=== PATIENT | female | born 1975 | race American Indian/Alaskan Native ===

== ENCOUNTER 2017-08-06 18:15 | Emergency (ER) | payer SELFPAY ==
[2017-08-06 18:23] VITALS: BP 131/88; PULSE 84; RESP 16; TEMP 98.9; O2SAT 99
[2017-08-06] MEDS ORDERED: Naproxen 550 mg Tab PO STA (19:03)
[2017-08-06] MEDS ORDERED: TDAP Vaccine 0.5 mL Syr IM ONE (19:16)
--- NOTE | 2017-08-06 19:18 | ED PDOC ---
Arrival/HPI - General Chief Complaint: Breast Problem Time Seen by Provider: 08/06/17 18:31 Historian: Patient - History of Present Illness Narrative History of Present Illness (Text): 08/06/17 19:23 42 yo F c/o 2 day h/p painful red mass to the R breast proximal to the nipple, with thick yellow d/c from the nipple. Patient states that she has had similar symptoms 2 months ago, she saw her pmd and was not given any Rx for antibiotics. She states that she was advised by her pmd to get a mammogram, which she had done and was wnl. Denies fever, chills, trauma, injury, CP, SOB. Has no additional complaints. Past Medical History - Provider Review Nursing Documentation Reviewed: Yes - Psychiatric Hx Substance Use: No Family/Social History - Physician Review Nursing Documentation Reviewed: Yes Family/Social History: No Known Family HX Smoking Status: Never Smoked Hx Alcohol Use: No Hx Substance Use: No Allergies/Home Meds Allergies/Adverse Reactions: Allergies No Known Allergies Allergy (Verified 08/06/17 18:23) Review of Systems - Review of Systems Constitutional: Normal. absent: Fatigue, Weight Change, Fevers Respiratory: Normal. absent: SOB, Cough, Sputum Cardiovascular: Normal. absent: Chest Pain, Palpitations, Edema Musculoskeletal: Normal. absent: Arthralgias, Back Pain, Neck Pain Skin: Normal, Abscess (R breast abscess). absent: Rash, Pruritis, Skin Lesions Physical Exam Vital Signs Reviewed: Yes Vital Signs Temp Pulse Resp BP Pulse Ox 08/06/17 18:20 98.9 F 84 16 131/88 99 Temperature: Afebrile Blood Pressure: Normal Pulse: Regular Respiratory Rate: Normal Appearance: Positive for: Well-Appearing, Non-Toxic, Comfortable Pain Distress: Mild Mental Status: Positive for: Alert and Oriented X 3 - Systems Exam Head: Present: Atraumatic, Normocephalic Neck: Present: Normal Range of Motion. No: MIDLINE TENDERNESS Respiratory/Chest: Present: Clear to Auscultation, Good Air Exchange. No: Respiratory Distress, Accessory Muscle Use, Wheezes, Rhonchi Cardiovascular: Present: Regular Rate and Rhythm, Normal S1, S2. 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 No: Axillary Lymphad Upper Extremity: Present: Normal Inspection, Normal ROM, NORMAL PULSES. No: Cyanosis, Edema Neurological: Present: GCS=15, CN II-XII Intact Skin: Present: Warm, Dry, Normal Color. No: Rashes Medical Decision Making ED Course and Treatment: 08/06/17 19:25 42 yo F c/o 2 day h/p painful red mass to the R breast proximal to the nipple, with thick yellow d/c from the nipple. Plan : - Tdap IM - Naprosyn PO Dx of breast abscess d/w the patient. Advised to apply warm compresses. Otherwise instructed to follow up with primary care physician or referral physician provided in 1-2 days without fail. Advised to take medication as prescribed. Return to the emergency room at any time for any new or worsening symptoms. Patient states she fully agrees with and understands discharge instructions. States that she agrees with the plan and disposition. Verbalized and repeated discharge instructions and plan. I have given the patient opportunity to ask any additional questions. - Medication Orders Current Medication Orders: Discontinued Medications Naproxen (Anaprox Ds) 550 mg PO ONCE STA Stop: 08/06/17 19:04 Last Admin: 08/06/17 19:58 Dose: 550 mg Tetanus/Reduced Diphtheria/Acell Pertussis (Boostrix Vaccine Inj) 0.5 ml IM .ONCE ONE Stop: 08/06/17 19:17 Last Admin: 08/06/17 19:57 Dose: 0.5 ml [facility] Immunization Data Document 08/06/17 19:57 RD (Rec: 08/06/17 19:58 RD [id number]) Immunization Data Vaccine [employer] Vaccine Lot Number [id number] Vaccine Expiration Date 09/03/19 Site Given Left Deltoid Route Intramuscular Immunization Units ml - 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 Disposition/Present on Arrival - Present on Arrival Any Indicators Present on Arrival: No History of DVT/PE: No History of Uncontrolled Diabetes: No Urinary Catheter: No History of Decub. Ulcer: No History Surgical Site Infection Following: None - Disposition Have Diagnosis and Disposition been Completed?: Yes Diagnosis: Breast abscess Disposition: HOME/ ROUTINE Disposition Time: 19:00 Patient Plan: Discharge Condition: STABLE Discharge Instructions (ExitCare): Mastitis (ED) Print Language: BELARUSIAN Additional Instructions: Thank you for letting us take care of you today. You were treated for breast abscess. The emergency medical care you received today was directed at your acute symptoms. If you were prescribed any medication, please fill it and take as directed. It may take several days for your symptoms to resolve. Return to the Emergency Department if your symptoms worsen, do not improve, or if you have any other problems. Please contact your doctor in 2 days for re-evaluation and follow up / or call one of the physicians/clinics you have been referred to that are listed on the Patient Visit Information form that is included in your discharge packet. Bring any paperwork you were given at discharge with you along with any medications you are taking to your follow up visit. Our treatment cannot replace ongoing medical care by a primary care provider (PCP) outside of the emergency department. Thank you for allowing the [facility] team to be part of your care today. Prescriptions: Dicloxacillin [Dynapen] 500 mg PO QID #40 cap Referrals: Kelly Tejada DO [Primary Care Provider] - Follow up with primary Manuelito Lyons MD [Medical Doctor] - Follow up with primary Forms: [employer] (Samoan), WORK NOTE
== END 2017-08-06 19:58 | disposition home or self-care (01) ==
LOC: ED 18:15
DX: N61.1 Abscess of the breast and nipple (principal); Z23 Encounter for immunization

== ENCOUNTER 2017-11-02 09:51 | Inpatient (IN) | payer OTHER ==
[2017-11-02 10:05] VITALS: BMI 43.5
--- NOTE | 2017-11-02 10:39 | ED PDOC ---
Arrival/HPI - General Chief Complaint: Shortness Of Breath Time Seen by Provider: 11/02/17 10:05 Historian: Patient - History of Present Illness Narrative History of Present Illness (Text): 11/02/17 10:36 you were treated in the ED today for cough/cold like symptoms for 2 days and intermittent chest pain with difficulty breathing on ambulation otherwise without any nausea/vomiting/headache/dizziness/abdomen pain/numbness/tingling/ loss of limb function/pain with urination. Time/Duration: Other (2 days) Symptom Course: Unchanged Context: Home Past Medical History - Provider Review Nursing Documentation Reviewed: Yes - Psychiatric Hx Substance Use: No Family/Social History - Physician Review Nursing Documentation Reviewed: Yes Family/Social History: No Known Family HX Smoking Status: Never Smoked Hx Alcohol Use: No Hx Substance Use: No Allergies/Home Meds Allergies/Adverse Reactions: Allergies No Known Allergies Allergy (Verified 11/02/17 10:16) Home Medications: Home Meds Medication Instructions Recorded Confirmed No Known Home Med 11/02/17 11/02/17 Review of Systems - Physician Review All systems were reviewed & negative as marked: Yes - Review of Systems Respiratory: SOB (on ambualtion), Cough Cardiovascular: Chest Pain Gastrointestinal: absent: Abdominal Pain, Nausea, Vomiting Genitourinary Female: absent: Dysuria Neurological: absent: Headache, Dizziness, Focal Weakness Physical Exam Vital Signs Reviewed: Yes Vital Signs Temp Pulse Resp BP Pulse Ox 11/02/17 14:47 74 20 83/46 L 100 11/02/17 11:14 98.1 F 81 18 114/64 100 11/02/17 11:07 18 11/02/17 10:04 98.1 F 96 H 18 119/76 100 Temperature: Afebrile Blood Pressure: Normal Pulse: Tachycardic Respiratory Rate: Normal Appearance: Positive for: Well-Appearing, Non-Toxic, Comfortable Pain Distress: None Mental Status: Positive for: Alert and Oriented X 3 - Systems Exam Head: Present: Atraumatic, Normocephalic Pupils: Present: PERRL Extroacular Muscles: Present: EOMI Conjunctiva: Present: Normal Mouth: Present: Moist Mucous Membranes Neck: Present: Normal Range of Motion Respiratory/Chest: Present: Clear to Auscultation, Good Air Exchange. No: Respiratory Distress, Accessory Muscle Use Cardiovascular: Present: Regular Rate and Rhythm, Normal S1, S2. No: Murmurs Abdomen: Present: Normal Bowel Sounds. No: Tenderness, Distention, Peritoneal Signs Back: Present: Normal Inspection Upper Extremity: Present: Normal Inspection. No: Cyanosis, Edema Lower Extremity: Present: Normal Inspection. No: Edema Neurological: Present: GCS=15, CN II-XII Intact, Speech Normal Skin: Present: Warm, Dry, Normal Color. No: Rashes Psychiatric: Present: Alert, Oriented x 3, Normal Insight, Normal Concentration Medical Decision Making ED Course and Treatment: you were treated in the ED today for cough/cold like symptoms for 2 days and intermittent chest pain with difficulty breathing on ambulation otherwise without any nausea/vomiting/headache/dizziness/abdomen pain/numbness/tingling/ loss of limb function/pain with urination. PERC negative ie no recent travel, no prior blood clots. no control or hormone use. You were otherwise breathing easily, smiling when you talk, good strength/sensation, walking easily , clear lungs, no abdomen tenderness, your vision was such no fever temp 98.1, you have blood tests no infection count with low WBC of 3.2, stable blood level hemoglobin 13.5/platelets 245, stable chemistry sodium normal, potassium normal , bicarbonate normal, chloride normal, bun normal, creatinine normal, glucose normal, heart blood test normal, bnp/heart failure test 2180, urine test negative, radiology chest xray with no acute findings, ECG normal sinus, observation in the ed. Report Date : 11/02/2017 13:07:41 Procedure: Chest xray Dictator : DR. Mata, Janie CHAHAL IMPRESSION: No active pulmonary disease. 11/02/17 16:59 cta chest no pe. mild bp drop 83, will give 250cc ns and to wash iv contrast, trop 0.11 indeterminate, bnp 2180, dw Dr. Catalan who agreed, utox, influenza and admit for new onset chf to telemetry when bp increase. 11/02/17 17:00 - Lab Interpretations Lab Results: 11/02/17 12:07 11/02/17 12:07 Lab Results 11/02/17 12:15: D-Dimer, Quantitative 348 H 11/02/17 12:07: Sodium 140, Potassium 3.6, Chloride 104, Carbon Dioxide 23, Anion Gap 16, BUN 16, Creatinine 1.1, Est GFR ( Amer) > 60, Est GFR (Non- Af Amer) 54, Random Glucose 110, Calcium 9.2, Total Bilirubin 0.7, AST 28, ALT 30, Alkaline Phosphatase 64, Lactate Dehydrogenase 422, Total Creatine Kinase 75 , Troponin I 0.11, NT-Pro-B Natriuret Pep 2180 H, Total Protein 7.2, Albumin 3.8 , Globulin 3.4, Albumin/Globulin Ratio 1.1 11/02/17 12:07: PT 13.4 H, INR 1.16 H, APTT 28.0 11/02/17 12:07: WBC 3.2 L, RBC 4.67, Hgb 13.5, Hct 40.8, MCV 87.4, MCH 28.9, MCHC 33.1, RDW 14.2, Plt Count 245, MPV 10.3, Gran % 55.0, Lymph % (Auto) 36.1 H , [place] % (Auto) 7.0 H, Eos % (Auto) 1.6, Baso % (Auto) 0.3, Gran # 1.74, Lymph # 1.1 L, [place] # 0.2, Eos # 0.1, Baso # 0.01 11/02/17 11:44: Urine Color Light brown, Urine Appearance Sl cloudy, Urine pH 6.5, Ur Specific [place] 1.025, Urine Protein 100 H, Urine Glucose (UA) Negative , Urine Ketones Trace H, Urine Blood Trace-intact H, Urine Nitrate Negative, Urine Bilirubin Moderate H, Urine Urobilinogen 1.0 H, Ur Leukocyte Esterase Trace H, Urine RBC 0 - 2, Urine WBC 2 - 5, Ur Epithelial Cells 3 - 4, Urine Bacteria Few I have reviewed the lab results: Yes - RAD Interpretation Radiology Orders: 11/02/17 11:44 CHEST TWO VIEWS (PA/LAT) [RAD] Stat 11/02/17 14:04 ANGIO CHEST PE PROTOCOL [CT] Stat Patient Ambassador: Radiologist - EKG Interpretation Interpreted by ED Physician: Yes (NSR, flipped avl, iii, v2, v3, v4, v5, v6, flattened iii, avf) Type: 12 lead EKG - Medication Orders Current Medication Orders: Sodium Chloride (Sodium Chloride 0.9%) 250 mls @ 999 mls/hr IV .Q16M NANCY Discontinued Medications Aspirin (Aspirin) 325 mg PO STAT STA Stop: 11/02/17 11:45 Last Admin: 11/02/17 12:00 Dose: 325 mg Disposition/Present on Arrival - Present on Arrival Any Indicators Present on Arrival: Yes History of DVT/PE: No History of Uncontrolled Diabetes: No Urinary Catheter: No History of Decub. Ulcer: No History Surgical Site Infection Following: None - Disposition Have Diagnosis and Disposition been Completed?: Yes Diagnosis: CHF (congestive heart failure) Disposition Time: 17:01 Patient Plan: Admission, Telemetry Condition: STABLE Discharge Instructions (ExitCare): Heart Failure (ED) Referrals: Kelly Tejada DO [Primary Care Provider] - Follow up with primary Forms: [employer] (S[place] Arabian)
[2017-11-02 11:56] LABS: PH,URINE 6.5 (4.7-8.0); URINE BILIRUBIN MODERATE (NEGATIVE); URINE BLOOD TRACE-INTACT (NEGATIVE); URINE GLUCOSE (UA) NEGATIVE (NEGATIVE); URINE LEUKOCYTE ESTERASE TRACE Leu/uL (NEGATIVE); URINE NITRATE NEGATIVE (NEGATIVE); URINE PROTEIN 100 mg/dL (<30 mg/dL)
[2017-11-02 11:58] LABS: URINE APPEARANCE SL CLOUDY (CLEAR); URINE COLOR LIGHT BROWN (YELLOW)
[2017-11-02 12:01] LABS: URINE BACTERIA FEW (NEG); URINE RBC 0 - 2 /hpf (0-2)
[2017-11-02 12:27] LABS: BASO # 0.01 K/mm3 (0.0-2.0); BASO % 0.3 % (0.0-3.0); EOS # 0.1 (0.0-0.7); EOS % 1.6 % (1.5-5.0); GRAN # 1.74 (1.4-6.5); HEMOGLOBIN 13.5 g/dL (12.0-16.0); LYMPH # 1.1 (1.2-3.4); LYMPH % 36.1 % (22.0-35.0); MEAN CELL VOLUME 87.4 fl (80.0-105.0); MEAN CORPUSCULAR HEMOGLOBIN 28.9 pg (25.0-35.0); MEAN CORPUSCULAR HGB CONC 33.1 g/dl (31.0-37.0); MEAN PLATELET VOLUME 10.3 fl (7.0-11.0); MONO # 0.2 (0.1-0.6); RBC 4.67 10^6/uL (3.5-6.1); RED CELL DISTRIBUTION WIDTH 14.2 % (11.5-14.5); WHITE BLOOD COUNT 3.2 10^3/ul (4.5-11.0)
[2017-11-02 12:32] LABS: ALB/GLOB RATIO 1.1 (1.1-1.8); ALBUMIN 3.8 g/dL (3.0-4.8); ALT/SGPT 30 U/L (7-56); AST/SGOT 28 U/L (14-36); BLOOD UREA NITROGEN 16 mg/dL (7-21); CALCIUM 9.2 mg/dL (8.4-10.5); GFR AFRICAN-AMERICAN > 60; GFR NON-AFRICAN AMERICAN 54
[2017-11-02 12:33] LABS: INR 1.16 (0.93-1.08); PROTHROMBIN TIME 13.4 SECONDS (9.4-12.5)
[2017-11-02 12:43] LABS: B-TYPE NATRIURETIC PEPTIDE 2180 pg/mL (0-450); TROPONIN I 0.11 ng/mL
--- NOTE | 2017-11-02 15:28 | CT ---
PROCEDURE: CT Chest with contrast (Pulmonary Angiogram) HISTORY: 42yoF, chest pain, elevated bnp, d-dimer. eval PE COMPARISON: None available. TECHNIQUE: Axial computed tomography images were obtained of the chest in the pulmonary arterial phase of enhancement. Coronal and sagittal reformatted images were created and reviewed. Intravenous contrast dose: 100 cc of Visipaque Radiation dose: Total exam DLP = 630 mGy-cm. This CT exam was performed using one or more of the following dose reduction techniques: Automated exposure control, adjustment of the mA and/or kV according to patient size, and/or use of iterative reconstruction technique. FINDINGS: PULMONARY ARTERIES: Unremarkable. No pulmonary embolism. AORTA: No acute findings. No thoracic aortic aneurysm. LUNGS: Unremarkable. No nodule, mass or pulmonary consolidation. PLEURAL SPACES: Unremarkable. No effusion or pneuomothorax. HEART: Unremarkable. No cardiomegaly. No significant pericardial effusion. LYMPH NODES: No lymphadenopathy. BONES, CHEST WALL: Unremarkable. No fracture or destructive lesion OTHER FINDINGS: Unremarkable. IMPRESSION: Unremarkable CT pulmonary angiogram. No pulmonary embolus.
[2017-11-02] MEDS ORDERED: Sodium Chloride 0.9% 250 ML IV SCH (17:00)
[2017-11-02] MEDS ORDERED: Albuterol 0.083% Inhal Sol (2.5 mg/3 mL) UD IH PRN (17:06)
[2017-11-02] MEDS ORDERED: Sodium Chloride 0.9% 1,000 ML IV SCH (17:15)
--- NOTE | 2017-11-02 17:29 | CP.PCM.HP ---
<KayliNga - Last Filed: 11/02/17 17:40> History of Present Illness - History of Present Illness History of Present Illness: H&P for HospitalistSherry PGY2 This is a 42yo female with past medical history of breast abscess came to ED for shortness of breath x 1 day. Patient report she had a dry cough and URI since last Thursday. She states during that time she had a dry cough and subjective fevers. She used OTC medications for her symptoms which have improved. Patient said that this morning she was having a coughing fit and started feeling short of breath so she decided to come to ED. She denies sick contacts, recent travel, leg swelling, chest pain, wheezing, numbness/tingling, abdominal pain, fever/chills, dysuria or hematuria. In ED, patient was noted to have elevated D-dimer. CTA did not show any acute abnormalities. CXR showed no active disease and EKG showed NSR. BNP was noted to be elevated. As per patient, she has not seen her PMD in a couple years because she has gained weight and was unable to lose it. Past medical history: breast abscess Past surgical history: denies Home meds: None Allergies: NKDA Social history: Denies EtOH, drug or tobacco abuse. Lives with family. 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 Joie Tejada Insurance: None Present on Admission - Present on Admission Any Indicators Present on Admission: No Review of Systems - Review of Systems All systems: reviewed and no additional remarkable complaints except Review of Systems: 12 point ROS reviewed as per HPI Past Patient History - Past Social History Smoking Status: Never Smoked Alcohol: None Drugs: Denies Home Situation {Lives}: With Family - PSYCHIATRIC Hx Substance Use: No - SURGICAL HISTORY Hx Surgeries: No Meds Allergies/Adverse Reactions: Allergies Allergy/AdvReac Type Severity Reaction Status Date / Time No Known Allergies Allergy Verified 11/02/17 10:16 Physical Exam - Constitutional Appears: No Acute Distress - Head Exam Head Exam: ATRAUMATIC, NORMAL INSPECTION, NORMOCEPHALIC - Eye Exam Eye Exam: Normal appearance, PERRL Pupil Exam: NORMAL ACCOMODATION, PERRL - ENT Exam ENT Exam: Mucous Membranes Moist - Neck Exam Neck exam: Positive for: Full Rom, Normal Inspection - Respiratory Exam Respiratory Exam: Clear to Auscultation Bilateral, NORMAL BREATHING PATTERN. absent: Rales, Rhonchi, Wheezes - Cardiovascular Exam Cardiovascular Exam: REGULAR RHYTHM, +S1, +S2. absent: Gallop, Rubs, Systolic Murmur - GI/Abdominal Exam GI & Abdominal Exam: Normal Bowel Sounds, Soft. absent: Mass, Rebound, Rigid, Tenderness - Extremities Exam Extremities exam: Positive for: normal inspection. Negative for: calf tenderness, pedal edema - Neurological Exam Neurological exam: Alert, CN II-XII Intact, Oriented x3 - Psychiatric Exam Psychiatric exam: Normal Affect, Normal Mood - Skin Skin Exam: Dry, Intact, Warm Results - Vital Signs Recent Vital Signs: Last Vital Signs Temp 98.1 F 11/02/17 11:14 Pulse 78 11/02/17 16:59 Resp 18 11/02/17 16:59 BP 90/56 L 11/02/17 16:59 Pulse Ox 100 11/02/17 16:59 - Labs Result Diagrams: 11/02/17 12:07 11/02/17 12:07 Labs: Laboratory Results - last 24 hr 11/02/17 11/02/17 11/02/17 11:44 12:07 12:07 WBC 3.2 L RBC 4.67 Hgb 13.5 Hct 40.8 MCV 87.4 MCH 28.9 MCHC 33.1 RDW 14.2 Plt Count 245 MPV 10.3 Gran % 55.0 Lymph % (Auto) 36.1 H [place] % (Auto) 7.0 H Eos % (Auto) 1.6 Baso % (Auto) 0.3 Gran # 1.74 Lymph # 1.1 L [place] # 0.2 Eos # 0.1 Baso # 0.01 PT 13.4 H INR 1.16 H APTT 28.0 D-Dimer, Quantitative Sodium Potassium Chloride Carbon Dioxide Anion Gap BUN Creatinine Est GFR ( Amer) Est GFR (Non-Af Amer) Random Glucose Calcium Total Bilirubin AST ALT Alkaline Phosphatase Lactate Dehydrogenase Total Creatine Kinase Troponin I NT-Pro-B Natriuret Pep Total Protein Albumin Globulin Albumin/Globulin Ratio Urine Color Light brown Urine Appearance Sl cloudy Urine pH 6.5 Ur Specific [place] 1.025 Urine Protein 100 H Urine Glucose (UA) Negative Urine Ketones Trace H Urine Blood Trace-intact H Urine Nitrate Negative Urine Bilirubin Moderate H Urine Urobilinogen 1.0 H Ur Leukocyte Esterase Trace H Urine RBC 0 - 2 Urine WBC 2 - 5 Ur Epithelial Cells 3 - 4 Urine Bacteria Few 11/02/17 11/02/17 12:07 12:15 WBC RBC Hgb Hct MCV MCH MCHC RDW Plt Count MPV Gran % Lymph % (Auto) [place] % (Auto) Eos % (Auto) Baso % (Auto) Gran # Lymph # [place] # Eos # Baso # PT INR APTT D-Dimer, Quantitative 348 H Sodium 140 Potassium 3.6 Chloride 104 Carbon Dioxide 23 Anion Gap 16 BUN 16 Creatinine 1.1 Est GFR ( Amer) > 60 Est GFR (Non-Af Amer) 54 Random Glucose 110 Calcium 9.2 Total Bilirubin 0.7 AST 28 ALT 30 Alkaline Phosphatase 64 Lactate Dehydrogenase 422 Total Creatine Kinase 75 Troponin I 0.11 NT-Pro-B Natriuret Pep 2180 H Total Protein 7.2 Albumin 3.8 Globulin 3.4 Albumin/Globulin Ratio 1.1 Urine Color Urine Appearance Urine pH Ur Specific [place] Urine Protein Urine Glucose (UA) Urine Ketones Urine Blood Urine Nitrate Urine Bilirubin Urine Urobilinogen Ur Leukocyte Esterase Urine RBC Urine WBC Ur Epithelial Cells Urine Bacteria Assessment & Plan - Assessment and Plan (Free Text) Assessment: This is a 42yo female with past medical history of breast abscess came to ED for shortness of breath x 1 day. Patient recently had URI 6 days ago with dry cough. BNP was noted to be elevated. Plan: 1. Shortness of breath - secondary to URI versus CHF - CXR showed no active disease or cardiomegaly - CTA showed no evidence of PE - EKG showed NSR - BNP elevated, Trop 0.11 - Will continue to trend troponin - if trop trending up will start on lovenox - Will check lipid panel, TSH and HgbA1c - Cardio consulted - Echo ordered - ASA 81mg - Influenza pending - Duoneb prn 2. Mild hypotension - secondary to poor PO intake - Fluid responsive - maintain map>65 - Will keep pt on NS@75 overnight - Monitor I&O and d/c in am GI ppx: Protonix DVT ppx: SCDs Case seen, discussed and reviewed with attending. Sherry Milan PGY2 - Date & Time Date: 11/02/17 Time: 18:01 <Cassandra Catalan - Last Filed: 11/02/17 18:44> Results - Vital Signs Recent Vital Signs: Last Vital Signs Temp 98.1 F 11/02/17 11:14 Pulse 78 11/02/17 16:59 Resp 18 11/02/17 16:59 BP 90/56 L 11/02/17 16:59 Pulse Ox 100 11/02/17 16:59 - Labs Result Diagrams: 11/02/17 12:07 11/02/17 12:07 Labs: Laboratory Results - last 24 hr 11/02/17 17:35 Troponin I 0.12 Triglycerides 91 Cholesterol 174 LDL Cholesterol Direct 113 HDL Cholesterol 30 Attending/Attestation - Attestation I have personally seen and examined this patient.: Yes I have fully participated in the care of the patient.: Yes I have reviewed all pertinent clinical information: Yes Notes (Text): 11/02/17 18:38 42 year old female with no significant past medical history who presents with complaint of cough and shortness of breath. Also complained of chest pain yesterday and URI symptoms. In ER she was found to have borderline troponins, elevated d-dimer and pbnp. However CXR and CT angio are negative for PE or signs of fluid overload. Will admit to telemetry unit for observation. Serial cardiac enzymes are ordered to rule out ACS. Cardiology evaluation is requested and echocardiogram is ordered. Continue with aspirin for now. Lipid panel and A1c is ordered. Will also check for flu. She is also slightly hypotensive, asymptomatic. She is on gentle hydration; will monitor. Cassandra Catalan MD Hospitalist.
--- NOTE | 2017-11-02 18:11 | CARD ---
APPROVED REPORT EKG Measurement Heart [id number] <Conclusion> Normal sinus rhythm Nonspecific T wave abnormality Abnormal ECG
[2017-11-02 18:35] LABS: TROPONIN I 0.12 ng/mL
[2017-11-02] MEDS: Sodium Chloride 0.9% 1,000 ML IV SCH (19:17)
[2017-11-02 19:47] LABS: BARBITURATES, UR NEGATIVE (NEGATIVE); BENZODIAZEPINES, UR NEGATIVE (NEGATIVE); OPIATES, UR NEGATIVE (NEGATIVE); PHENCYCLIDINE, UR NEGATIVE (NEGATIVE)
[2017-11-03] MEDS: Sodium Chloride 0.9% 1,000 ML IV SCH ×3 (06:18→22:08)
[2017-11-03 06:51] LABS: BASO # 0.02 K/mm3 (0.0-2.0); BASO % 0.5 % (0.0-3.0); EOS # 0.1 (0.0-0.7); EOS % 2.1 % (1.5-5.0); GRAN # 2.3 (1.4-6.5); GRAN % 60.2 % (50.0-68.0); HEMOGLOBIN 12.8 g/dL (12.0-16.0); LYMPH # 1.1 (1.2-3.4); LYMPH % 29.3 % (22.0-35.0); MEAN CELL VOLUME 87.5 fl (80.0-105.0); MEAN CORPUSCULAR HEMOGLOBIN 28.6 pg (25.0-35.0); MEAN CORPUSCULAR HGB CONC 32.7 g/dl (31.0-37.0); MEAN PLATELET VOLUME 10.3 fl (7.0-11.0); MONO # 0.3 (0.1-0.6); MONO % 7.9 % (1.0-6.0); RBC 4.48 10^6/uL (3.5-6.1); RED CELL DISTRIBUTION WIDTH 14.2 % (11.5-14.5); WHITE BLOOD COUNT 3.8 10^3/ul (4.5-11.0)
[2017-11-03 07:27] LABS: ALBUMIN 3.4 g/dL (3.0-4.8); ALT/SGPT 24 U/L (7-56); AST/SGOT 22 U/L (14-36); BLOOD UREA NITROGEN 18 mg/dL (7-21); CALCIUM 8.7 mg/dL (8.4-10.5); GFR AFRICAN-AMERICAN > 60; GFR NON-AFRICAN AMERICAN > 60
[2017-11-03] MEDS: Pantoprazole 40 mg EC Tab PO SCH (09:33)
[2017-11-03] MEDS: Enoxaparin 40 mg Syringe SC SCH (14:03)
--- NOTE | 2017-11-03 14:35 | CP.PCM.PN ---
<Vanessa Sims - Last Filed: 11/03/17 17:35> Subjective - Date & Time of Evaluation Date of Evaluation: 11/03/17 Time of Evaluation: 14:29 - Subjective Subjective: Medicine note for Dr. Catalan Patient seen and examined at bedside. Patient doing well with no new complaints at this time. Patient is still having mild chest pain and getting SOB when walking to the bathroom. She denies headache, dizziness, orthopnea, abdominal pain, n/v/d/c, LE pain/swelling. Objective - Vital Signs/Intake and Output Vital Signs (last 24 hours): Temp Pulse Resp BP Pulse Ox 97.8 F 90 20 103/68 99 11/03/17 11:35 11/03/17 11:35 11/03/17 11:35 11/03/17 11:35 11/03/17 09:00 Intake and Output: 11/03/17 11/03/17 06:59 18:59 Intake Total 950 Balance 950 - Medications Medications: Current Medications Albuterol Sulfate (Albuterol 0.083% Inhal Nancy (2.5 Mg/3 Ml) Ud) 2.5 mg IH Q2H PRN PRN Reason: Shortness of Breath Aspirin (Aspirin Chewable) 81 mg PO DAILY [facility] Last Admin: 11/03/17 09:33 Dose: 81 mg Enoxaparin Sodium (Lovenox) 40 mg SC BID [facility] PRN Reason: Protocol Last Admin: 11/03/17 14:03 Dose: 40 mg Sodium Chloride (Sodium Chloride 0.9%) 1,000 mls @ 75 mls/hr IV .[id number] [facility] Last Admin: 11/03/17 07:20 Dose: Not Given Metoprolol Tartrate (Lopressor) 25 mg PO BID [facility] Pantoprazole Sodium (Protonix Ec Tab) 40 mg PO ACB [facility] Last Admin: 11/03/17 09:33 Dose: 40 mg - Labs Labs: 11/03/17 05:15 11/03/17 05:15 PT 13.4 SECONDS (9.4-12.5) H 11/02/17 12:07 INR 1.16 (0.93-1.08) H 11/02/17 12:07 APTT 28.0 Seconds (25.1-36.5) 11/02/17 12:07 - Constitutional Appears: Non-toxic, No Acute Distress - Head Exam Head Exam: ATRAUMATIC, NORMAL INSPECTION, NORMOCEPHALIC - Eye Exam Eye Exam: EOMI, Normal appearance - ENT Exam ENT Exam: Mucous Membranes Moist - Respiratory Exam Respiratory Exam: Clear to Ausculation Bilateral, NORMAL BREATHING PATTERN - Cardiovascular Exam Cardiovascular Exam: RRR, +S1, +S2. absent: Murmur - GI/Abdominal Exam GI & Abdominal Exam: Soft, Normal Bowel Sounds. absent: Distended, Tenderness - Extremities Exam Extremities Exam: Normal Inspection. absent: Calf Tenderness, Pedal Edema - Neurological Exam Neurological Exam: Alert, Awake, Oriented x3 - Psychiatric Exam Psychiatric exam: Normal Affect, Normal Mood - Skin Skin Exam: Dry, Intact, Normal Color, Warm Assessment and Plan - Assessment and Plan (Free Text) Assessment: 42 y/o AA female with recent URI with cough who presents with shortness of breath, chest pain, and elevated BNP with indeterminate troponin levels. Plan: Chest pain and SOB * URI vs. ACS vs CHF * CXR showed NAD * BNP elevated but CTA negative for PE * EKG showing NSR * Troponins indeterminate * lipid panel * TSH * HbA1c * Influenza negative * Cardiology consulted (Dr. James) * f/u echo * ASA * Duonebs * Metoprolol Hypotension * resolving with fluids (NS @ 75) * likely 2/2 poor PO intake Prophylaxis * DVT: lovenox and SCDs * GI Protonix <Cassandra Catalan - Last Filed: 11/03/17 21:22> Objective - Vital Signs/Intake and Output Vital Signs (last 24 hours): Temp Pulse Resp BP Pulse Ox 98 F 87 20 115/70 99 11/03/17 18:00 11/03/17 18:24 11/03/17 18:00 11/03/17 18:24 11/03/17 09:00 Intake and Output: 11/03/17 11/04/17 18:59 06:59 Intake Total 1080 Balance 1080 - Medications Medications: Current Medications Albuterol Sulfate (Albuterol 0.083% Inhal Nancy (2.5 Mg/3 Ml) Ud) 2.5 mg IH Q2H PRN PRN Reason: Shortness of Breath Aspirin (Aspirin Chewable) 81 mg PO DAILY [facility] Last Admin: 11/03/17 09:33 Dose: 81 mg Enoxaparin Sodium (Lovenox) 40 mg SC BID [facility] PRN Reason: Protocol Last Admin: 11/03/17 14:03 Dose: 40 mg Sodium Chloride (Sodium Chloride 0.9%) 1,000 mls @ 75 mls/hr IV .[id number] [facility] Last Admin: 11/03/17 07:20 Dose: Not Given Metoprolol Tartrate (Lopressor) 25 mg PO BID [facility] Last Admin: 11/03/17 18:24 Dose: 25 mg Pantoprazole Sodium (Protonix Ec Tab) 40 mg PO ACB [facility] Last Admin: 11/03/17 09:33 Dose: 40 mg - Labs Labs: 11/03/17 05:15 11/03/17 05:15 PT 13.4 SECONDS (9.4-12.5) H 11/02/17 12:07 INR 1.16 (0.93-1.08) H 11/02/17 12:07 APTT 28.0 Seconds (25.1-36.5) 11/02/17 12:07 Attending/Attestation - Attestation I have personally seen and examined this patient.: Yes I have fully participated in the care of the patient.: Yes I have reviewed all pertinent clinical information, including history, physical exam and plan: Yes Notes (Text): 11/03/17 21:18 42 year old female with no significant past medical history who presented with complaint of cough, chest pain and shortness of breath. She was found to have elevated probnp, d-dimer and indeterminant troponins. CT angio and CXR were negative. Case was discussed with cardiology today; continue with aspirin, metoprolol and lovenox. Echocardiogram is pending. NPO after midnight for possible cardiac cath. Cassandra Catalan MD Hospitalist.
--- NOTE | 2017-11-04 00:34 | CON ---
DATE: 11/03/2017 CARDIOLOGY CONSULTATION HISTORY OF PRESENT ILLNESS: The patient is a 42-year-old woman, who presents with 3 days of upper respiratory viral infection. She then presented with shortness of breath and chest pain, which is related to her cough as well as exertion. Patient denies previous cardiac history. MEDICATIONS: She is on no medications at home. SOCIAL HISTORY: The patient denies smoking. No control pills use. REVIEW OF SYSTEMS: A 14-point review of systems was reviewed in detail. No additional symptoms other than above mentioned. PHYSICAL EXAMINATION: VITAL SIGNS: Blood pressure 103/68, heart rate in the 90s. NECK: Negative JVD. LUNGS: Without rales. HEART: Reveals S1, S2. EXTREMITIES: Without edema. LABORATORY AND IMAGING: EKG shows nonspecific ST-T changes. Troponins vary from 0.10 to 0.11. ProBNP is 2180. BUN and creatinine are unremarkable. Hemoglobin is 12.8. IMPRESSION AND PLAN: 1. Dyspnea. 2. Chest pain. 3. Kyl-XX-kgstehgob myocardial infarction. 4. Obesity. 5. Mild congestive heart failure. Given these findings, we will obtain an echocardiogram to evaluate her LV function. The patient was started on aspirin. We will add beta-blockers. Lovenox will be ordered. We will need to check her urine to rule out given the patient's age. Jeramie James MD
[2017-11-04 06:45] LABS: BASO # 0.01 K/mm3 (0.0-2.0); BASO % 0.2 % (0.0-3.0); EOS # 0.1 (0.0-0.7); EOS % 2.4 % (1.5-5.0); GRAN # 2.03 (1.4-6.5); GRAN % 49.8 % (50.0-68.0); HEMOGLOBIN 10.8 g/dL (12.0-16.0); LYMPH # 1.7 (1.2-3.4); LYMPH % 40.3 % (22.0-35.0); MEAN CELL VOLUME 88.6 fl (80.0-105.0); MEAN CORPUSCULAR HEMOGLOBIN 27.9 pg (25.0-35.0); MEAN CORPUSCULAR HGB CONC 31.5 g/dl (31.0-37.0); MEAN PLATELET VOLUME 10.5 fl (7.0-11.0); MONO # 0.3 (0.1-0.6); MONO % 7.3 % (1.0-6.0); RBC 3.87 10^6/uL (3.5-6.1); RED CELL DISTRIBUTION WIDTH 14.6 % (11.5-14.5); WHITE BLOOD COUNT 4.1 10^3/ul (4.5-11.0)
[2017-11-04 07:17] LABS: ALB/GLOB RATIO 1.1 (1.1-1.8); ALBUMIN 3.1 g/dL (3.0-4.8); ALT/SGPT 29 U/L (7-56); AST/SGOT 21 U/L (14-36); BLOOD UREA NITROGEN 17 mg/dL (7-21); CALCIUM 8.5 mg/dL (8.4-10.5); GFR AFRICAN-AMERICAN > 60; GFR NON-AFRICAN AMERICAN > 60
[2017-11-04] MEDS: Pantoprazole 40 mg EC Tab PO SCH (07:32)
[2017-11-04] MEDS: Enoxaparin 40 mg Syringe SC SCH (09:43)
--- NOTE | 2017-11-04 13:35 | CP.PCM.PN ---
<Vanessa Sims - Last Filed: 11/04/17 13:28> Subjective - Date & Time of Evaluation Date of Evaluation: 11/04/17 Time of Evaluation: 13:28 - Subjective Subjective: Patient seen and examined at bedside. Patient resting comfrotably in bed with no new complaints at this time. Patient says she feels much better and that all her symptoms she presented with have resolved. Denies chest pain, SOB, cough, abdominal pain, n/v/c/d. Objective - Vital Signs/Intake and Output Vital Signs (last 24 hours): Temp Pulse Resp BP Pulse Ox 98.2 F 75 18 101/66 98 11/04/17 11:59 11/04/17 11:59 11/04/17 11:59 11/04/17 11:59 11/04/17 06:00 Intake and Output: 11/04/17 11/04/17 06:59 18:59 Intake Total 2705 Balance 2705 - Medications Medications: Current Medications Albuterol Sulfate (Albuterol 0.083% Inhal Nancy (2.5 Mg/3 Ml) Ud) 2.5 mg IH Q2H PRN PRN Reason: Shortness of Breath Aspirin (Aspirin Chewable) 81 mg PO DAILY [facility] Last Admin: 11/04/17 09:43 Dose: 81 mg Clopidogrel Bisulfate (Plavix) 75 mg PO DAILY [facility] Sodium Chloride (Sodium Chloride 0.9%) 1,000 mls @ 75 mls/hr IV .[id number] [facility] Last Admin: 11/03/17 22:08 Dose: 75 mls/hr Metoprolol Tartrate (Lopressor) 25 mg PO BID [facility] Last Admin: 11/04/17 09:41 Dose: Not Given Pantoprazole Sodium (Protonix Ec Tab) 40 mg PO ACB [facility] Last Admin: 11/04/17 07:32 Dose: 40 mg - Labs Labs: 11/04/17 06:00 11/04/17 06:00 PT 13.4 SECONDS (9.4-12.5) H 11/02/17 12:07 INR 1.16 (0.93-1.08) H 11/02/17 12:07 APTT 28.0 Seconds (25.1-36.5) 11/02/17 12:07 - Additional Findings Additional findings: - Constitutional Appears: Non-toxic, No Acute Distress - Head Exam Head Exam: ATRAUMATIC, NORMAL INSPECTION, NORMOCEPHALIC - Eye Exam Eye Exam: EOMI, Normal appearance - ENT Exam ENT Exam: Mucous Membranes Moist - Respiratory Exam Respiratory Exam: Clear to Ausculation Bilateral, NORMAL BREATHING PATTERN - Cardiovascular Exam Cardiovascular Exam: RRR, +S1, +S2. absent: Murmur - GI/Abdominal Exam GI & Abdominal Exam: Soft, Normal Bowel Sounds. absent: Distended, Tenderness - Extremities Exam Extremities Exam: Normal Inspection. absent: Calf Tenderness, Pedal Edema - Neurological Exam Neurological Exam: Alert, Awake, Oriented x3 - Psychiatric Exam Psychiatric exam: Normal Affect, Normal Mood - Skin Skin Exam: Dry, Intact, Normal Color, Warm Assessment and Plan - Assessment and Plan (Free Text) Assessment: 42 y/o AA female with recent URI with cough who presents with shortness of breath, chest pain, and elevated BNP with indeterminate troponin levels. Plan: Chest pain and SOB * URI vs. ACS vs CHF * CXR showed NAD * BNP 2180 * D-dimer elevated but CTA negative for PE * EKG showing NSR * Troponins indeterminate * lipid panel: trig 91, chol 174, LDL 113, HDL 30 * TSH 2.10 * HbA1c 6.0 * Influenza negative * Cardiology consulted (Dr. James) * f/u echo read * plan for cath tomorrow * ASA * Duonebs * Metoprolol Hypotension * stable with fluids (NS @ 75) * likely 2/2 poor PO intake * hold metoprolol if SBP <100 Prophylaxis * DVT: lovenox and SCDs * GI Protonix <Cassandra Catalan - Last Filed: 11/04/17 14:38> Objective - Vital Signs/Intake and Output Vital Signs (last 24 hours): Temp Pulse Resp BP Pulse Ox 98.2 F 75 18 101/66 98 11/04/17 11:59 11/04/17 11:59 11/04/17 11:59 11/04/17 11:59 11/04/17 06:00 Intake and Output: 11/04/17 11/04/17 06:59 18:59 Intake Total 2705 Balance 2705 - Medications Medications: Current Medications Albuterol Sulfate (Albuterol 0.083% Inhal Nancy (2.5 Mg/3 Ml) Ud) 2.5 mg IH Q2H PRN PRN Reason: Shortness of Breath Aspirin (Aspirin Chewable) 81 mg PO DAILY [facility] Last Admin: 11/04/17 09:43 Dose: 81 mg Clopidogrel Bisulfate (Plavix) 75 mg PO DAILY [facility] Sodium Chloride (Sodium Chloride 0.9%) 1,000 mls @ 75 mls/hr IV .[id number] [facility] Last Admin: 11/03/17 22:08 Dose: 75 mls/hr Metoprolol Tartrate (Lopressor) 25 mg PO BID [facility] Last Admin: 11/04/17 09:41 Dose: Not Given Pantoprazole Sodium (Protonix Ec Tab) 40 mg PO ACB [facility] Last Admin: 11/04/17 07:32 Dose: 40 mg - Labs Labs: 11/04/17 06:00 11/04/17 06:00 PT 13.4 SECONDS (9.4-12.5) H 11/02/17 12:07 INR 1.16 (0.93-1.08) H 11/02/17 12:07 APTT 28.0 Seconds (25.1-36.5) 11/02/17 12:07 Attending/Attestation - Attestation I have personally seen and examined this patient.: Yes I have fully participated in the care of the patient.: Yes I have reviewed all pertinent clinical information, including history, physical exam and plan: Yes Notes (Text): 11/04/17 14:35 42 year old female with no significant past medical history who presented with complaint of cough, chest pain and shortness of breath. She was found to have elevated probnp, d-dimer and indeterminant troponins. CT angio and CXR were negative. She is on aspirin, plavix and metoprolol. LDL is 113, will add statin. She was on lovenox as well. Echocardiogram is done today with report pending. Cardiology is following and plan is for cardiac cath tomorrow. Cassandra Catalan MD Hospitalist.
[2017-11-04] MEDS ORDERED: Potassium Chloride 40 mEq/30 ml LIQ UD PO ONE (14:38)
--- NOTE | 2017-11-04 16:05 | PN ---
DATE: 11/04/2017 CARDIOLOGY FOLLOWUP SUBJECTIVE: The patient is without symptoms. PHYSICAL EXAMINATION VITAL SIGNS: Stable. NECK: Negative JVD. LUNGS: Without rales. HEART: S1 and S2. EXTREMITIES: Without edema. LABORATORY DATA: Echocardiogram shows good LV function with an EF of 60%. IMPRESSION AND PLAN: 1. Elevated troponins, which are unexplained. 2. Non ST-elevation myocardial infarction. 3. Good left ventricular function. 4. Obesity. 5. Dyspnea. Given these findings, I have discussed risks and benefits with the patient about potential cardiac catheterization and her elevated troponins. The patient is agreeable. Would load with Plavix and schedule for catheterization in the morning. Jeramie James MD
[2017-11-05] MEDS: Sodium Chloride 0.9% 1,000 ML IV SCH ×2 (01:00→13:12)
[2017-11-05 05:57] VITALS: O2SAT 98
[2017-11-05 06:43] LABS: BASO # 0.01 K/mm3 (0.0-2.0); BASO % 0.3 % (0.0-3.0); EOS # 0.1 (0.0-0.7); EOS % 4.2 % (1.5-5.0); GRAN # 1.07 (1.4-6.5); GRAN % 32.3 % (50.0-68.0); LYMPH # 1.9 (1.2-3.4); LYMPH % 57.5 % (22.0-35.0); MEAN CELL VOLUME 89.1 fl (80.0-105.0); MEAN CORPUSCULAR HEMOGLOBIN 27.9 pg (25.0-35.0); MEAN CORPUSCULAR HGB CONC 31.3 g/dl (31.0-37.0); MEAN PLATELET VOLUME 10.5 fl (7.0-11.0); MONO # 0.2 (0.1-0.6); MONO % 5.7 % (1.0-6.0); RBC 3.58 10^6/uL (3.5-6.1); RED CELL DISTRIBUTION WIDTH 14.7 % (11.5-14.5); WHITE BLOOD COUNT 3.3 10^3/ul (4.5-11.0)
[2017-11-05 07:54] LABS: ALT/SGPT 28 U/L (7-56); AST/SGOT 22 U/L (14-36); BLOOD UREA NITROGEN 13 mg/dL (7-21); CALCIUM 8.2 mg/dL (8.4-10.5); GFR AFRICAN-AMERICAN > 60; GFR NON-AFRICAN AMERICAN > 60
[2017-11-05] MEDS ORDERED: Midazolam 2 MG/2 ML VIAL ONE ×3 (08:50→09:28)
[2017-11-05] MEDS ORDERED: Lidocaine 2% Inj (20ml) ONE (08:50)
[2017-11-05] MEDS ORDERED: HEPARIN SODIUM/NS 2,000 ML IV ONE (08:51)
[2017-11-05] MEDS ORDERED: Iodixanol 320 MG/ML 200 ML BOTTLE IV ONE (08:51)
--- NOTE | 2017-11-05 13:53 | CARDCATH ---
PROCEDURE DATE: 11/05/2017 The patient had a persistent elevated troponins. She had multiple cardiac risk factors because of this, cardiac catheterization was recommended. PROCEDURE: Left heart catheterization with coronary arteriography and left ventriculogram. The right femoral artery was cannulated with a 6-Sinhala sheath. There were no complications. I performed moderate sedation, which included the presence of an independent trained observer that assisted in monitoring the patient's level of consciousness and physiologic status. After administration of Versed and fentanyl, my intra service time was 15 minutes. The findings on catheterization revealed a left ventricle that contracted normally. Estimated ejection fraction is 60%. The patient had a right dominant circulation. The RCA was within normal limits. Left main artery was unremarkable. The LAD and diagonal vessels were free of significant disease. The circumflex artery and obtuse marginal branches were free of significant disease. Angio-Seal was used to close the femoral artery site. The patient tolerated the procedure well. In summary, the procedure revealed normal coronary arteries with normal LV function. Given these findings, the patient's elevated troponin cannot be explained by ischemic cardiac disease. Her coronary arteries are normal. Her LV function is normal. In addition, a pulmonary embolism was ruled out as well. Given these findings, the patient needs to undergo a strict cardiac risk reduction program. The patient can be discharged later on this afternoon. Jeramie James MD
--- NOTE | 2017-11-05 15:12 | CP.PCM.DIS ---
<Vanessa Sims - Last Filed: 11/05/17 15:00> Provider - Provider Date of Admission: 11/03/17 14:48 Attending physician: Cassandra Catalan MD Primary care physician: Kelly Tejada DO Time Spent in preparation of Discharge (in minutes): 35 Hospital Course - Lab Results Lab Results: Most Recent Lab Values WBC 3.3 10^3/ul (4.5-11.0) L 11/05/17 05:45 RBC 3.58 10^6/uL (3.5-6.1) 11/05/17 05:45 Hgb 10.0 g/dL (12.0-16.0) L 11/05/17 05:45 Hct 31.9 % (36.0-48.0) L 11/05/17 05:45 MCV 89.1 fl (80.0-105.0) 11/05/17 05:45 MCH 27.9 pg (25.0-35.0) 11/05/17 05:45 MCHC 31.3 g/dl (31.0-37.0) 11/05/17 05:45 RDW 14.7 % (11.5-14.5) H 11/05/17 05:45 Plt Count 202 10^3/uL (120.0-450.0) 11/05/17 05:45 MPV 10.5 fl (7.0-11.0) 11/05/17 05:45 Gran % 32.3 % (50.0-68.0) L 11/05/17 05:45 Lymph % (Auto) 57.5 % (22.0-35.0) H 11/05/17 05:45 [place] % (Auto) 5.7 % (1.0-6.0) 11/05/17 05:45 Eos % (Auto) 4.2 % (1.5-5.0) 11/05/17 05:45 Baso % (Auto) 0.3 % (0.0-3.0) 11/05/17 05:45 Gran # 1.07 (1.4-6.5) L 11/05/17 05:45 Lymph # (Auto) 1.9 (1.2-3.4) 11/05/17 05:45 [place] # (Auto) 0.2 (0.1-0.6) 11/05/17 05:45 Eos # (Auto) 0.1 (0.0-0.7) 11/05/17 05:45 Baso # (Auto) 0.01 K/mm3 (0.0-2.0) 11/05/17 05:45 PT 13.4 SECONDS (9.4-12.5) H 11/02/17 12:07 INR 1.16 (0.93-1.08) H 11/02/17 12:07 APTT 28.0 Seconds (25.1-36.5) 11/02/17 12:07 D-Dimer, Quantitative 348 ng/mL (0-243) H 11/02/17 12:15 Sodium 138 mmol/L (132-148) 11/05/17 05:45 Potassium 3.6 mmol/L (3.6-5.0) 11/05/17 05:45 Chloride 109 mmol/L (98-107) H 11/05/17 05:45 Carbon Dioxide 23 mmol/L (21-33) 11/05/17 05:45 Anion Gap 10 (10-20) 11/05/17 05:45 BUN 13 mg/dL (7-21) 11/05/17 05:45 Creatinine 0.8 mg/dl (0.7-1.2) 11/05/17 05:45 Est GFR ( Amer) > 60 11/05/17 05:45 Est GFR (Non-Af Amer) > 60 11/05/17 05:45 Random Glucose 85 mg/dL (70-110) 11/05/17 05:45 Hemoglobin A1c 6.0 % (4.2-6.5) 11/02/17 17:35 Calcium 8.2 mg/dL (8.4-10.5) L 11/05/17 05:45 Total Bilirubin 0.6 mg/dL (0.2-1.3) 11/05/17 05:45 AST 22 U/L (14-36) 11/05/17 05:45 ALT 28 U/L (7-56) 11/05/17 05:45 Alkaline Phosphatase 46 U/L (38-126) 11/05/17 05:45 Lactate Dehydrogenase 422 U/L (333-699) 11/02/17 12:07 Total Creatine Kinase 75 U/L (35-230) 11/02/17 12:07 Troponin I 0.10 ng/mL 11/03/17 00:15 NT-Pro-B Natriuret Pep 2180 pg/mL (0-450) H 11/02/17 12:07 Total Protein 5.9 g/dL (5.8-8.3) 11/05/17 05:45 Albumin 3.0 g/dL (3.0-4.8) 11/05/17 05:45 Globulin 2.9 gm/dL 11/05/17 05:45 Albumin/Globulin Ratio 1.0 (1.1-1.8) L 11/05/17 05:45 Triglycerides 91 mg/dL (35-160) 11/02/17 17:35 Cholesterol 174 mg/dL (130-200) 11/02/17 17:35 LDL Cholesterol Direct 113 mg/dL (0-129) 11/02/17 17:35 HDL Cholesterol 30 mg/dL (29-60) 11/02/17 17:35 TSH 3rd Generation 2.10 mIU/mL (0.46-4.68) 11/02/17 17:35 Urine Color Light brown (YELLOW) 11/02/17 11:44 Urine Appearance Sl cloudy (CLEAR) 11/02/17 11:44 Urine pH 6.5 (4.7-8.0) 11/02/17 11:44 Ur Specific [place] 1.025 (1.005-1.035) 11/02/17 11:44 Urine Protein 100 mg/dL (<30 mg/dL) H 11/02/17 11:44 Urine Glucose (UA) Negative mg/dL (NEGATIVE) 11/02/17 11:44 Urine Ketones Trace mg/dL (NEGATIVE) H 11/02/17 11:44 Urine Blood Trace-intact (NEGATIVE) H 11/02/17 11:44 Urine Nitrate Negative (NEGATIVE) 11/02/17 11:44 Urine Bilirubin Moderate (NEGATIVE) H 11/02/17 11:44 Urine Urobilinogen 1.0 E.U./dL (<1 E.U./dL) H 11/02/17 11:44 Ur Leukocyte Esterase Trace Charli/uL (NEGATIVE) H 11/02/17 11:44 Urine RBC 0 - 2 /hpf (0-2) 11/02/17 11:44 Urine WBC 2 - 5 /hpf (0-6) 11/02/17 11:44 Ur Epithelial Cells 3 - 4 /hpf (0-5) 11/02/17 11:44 Urine Bacteria Few (NEG) 11/02/17 11:44 Urine HCG, Qual Negative (NEGATIVE) 11/03/17 15:40 Urine Opiates Screen Negative (NEGATIVE) 11/02/17 17:35 Urine Methadone Screen Negative (NEGATIVE) 11/02/17 17:35 Ur Barbiturates Screen Negative (NEGATIVE) 11/02/17 17:35 Ur Phencyclidine Scrn Negative (NEGATIVE) 11/02/17 17:35 Ur Amphetamines Screen Negative (NEGATIVE) 11/02/17 17:35 U Benzodiazepines Scrn Negative (NEGATIVE) 11/02/17 17:35 U Oth Cocaine Metabols Negative (NEGATIVE) 11/02/17 17:35 U Cannabinoids Screen Negative (NEGATIVE) 11/02/17 17:35 Influenza Typ A,B (EIA) Negative for flu a/b (NEGATIVE) 11/02/17 17:35 - Hospital Course Hospital Course: Upon admission: This is a 42yo female with past medical history of breast abscess came to ED for shortness of breath x 1 day. Patient report she had a dry cough and URI since last Thursday. She states during that time she had a dry cough and subjective fevers. She used OTC medications for her symptoms which have improved. Patient said that this morning she was having a coughing fit and started feeling short of breath so she decided to come to ED. She denies sick contacts, recent travel, leg swelling, chest pain, wheezing, numbness/tingling, abdominal pain, fever/chills, dysuria or hematuria. In ED, patient was noted to have elevated D-dimer. CTA did not show any acute abnormalities. CXR showed no active disease and EKG showed NSR. BNP was noted to be elevated. As per patient, she has not seen her PMD in a couple years because she has gained weight and was unable to lose it. Hospital Course: Patient was admitted to r/o ACS. Troponins were indeterminate and BNP was elevated. D-dimer was elevated as well but CTA showed no sign of PE. EKG was NSR. Cardiology was consulted (Dr. James). Patient was started on ASA, statin, and beta nina. Patient's lipid panel resulted in a ASCVD score of 1.1. Patient had a echo and cardiac catheterization that were both normal. Upon Discharge: Patient stable for discharge per Dr. James and Dr. Catalan. Patient was instructed to follow up with her PCP and Dr. James within one week of discharge. Please note this is a summary of events. For more details, please see complete medical record. Discharge Exam - Head Exam Head Exam: ATRAUMATIC, NORMAL INSPECTION, NORMOCEPHALIC - Eye Exam Eye Exam: EOMI, Normal appearance, PERRL - ENT Exam ENT Exam: Mucous Membranes Moist - Respiratory Exam Respiratory Exam: UNREMARKABLE - Cardiovascular Exam Cardiovascular Exam: RRR, +S1, +S2. absent: Diastolic murmur, Gallop, Rubs, Systolic Murmur - GI/Abdominal Exam GI & Abdominal Exam: Normal Bowel Sounds, Unremarkable - Extremities Exam Extremities exam: normal inspection - Neurological Exam Neurological exam: Alert, Oriented x3 - Psychiatric Exam Psychiatric exam: Normal Affect, Normal Mood - Skin Skin Exam: Dry, Intact, Normal Color, Warm Discharge Plan - Follow Up Plan Condition: STABLE Disposition: HOME/ ROUTINE Additional Instructions: Please follow up with Dr. James and your PCP withing 1 week. Referrals: Kelly Tejada DO [Primary Care Provider] - <Cassandra Catalan - Last Filed: 11/05/17 16:02> Provider - Provider Date of Admission: 11/03/17 14:48 Attending physician: Cassandra Catalan MD Primary care physician: Kelly Tejada DO Hospital Course - Lab Results Lab Results: Most Recent Lab Values WBC 3.3 10^3/ul (4.5-11.0) L 11/05/17 05:45 RBC 3.58 10^6/uL (3.5-6.1) 11/05/17 05:45 Hgb 10.0 g/dL (12.0-16.0) L 11/05/17 05:45 Hct 31.9 % (36.0-48.0) L 11/05/17 05:45 MCV 89.1 fl (80.0-105.0) 11/05/17 05:45 MCH 27.9 pg (25.0-35.0) 11/05/17 05:45 MCHC 31.3 g/dl (31.0-37.0) 11/05/17 05:45 RDW 14.7 % (11.5-14.5) H 11/05/17 05:45 Plt Count 202 10^3/uL (120.0-450.0) 11/05/17 05:45 MPV 10.5 fl (7.0-11.0) 11/05/17 05:45 Gran % 32.3 % (50.0-68.0) L 11/05/17 05:45 Lymph % (Auto) 57.5 % (22.0-35.0) H 11/05/17 05:45 [place] % (Auto) 5.7 % (1.0-6.0) 11/05/17 05:45 Eos % (Auto) 4.2 % (1.5-5.0) 11/05/17 05:45 Baso % (Auto) 0.3 % (0.0-3.0) 11/05/17 05:45 Gran # 1.07 (1.4-6.5) L 11/05/17 05:45 Lymph # (Auto) 1.9 (1.2-3.4) 11/05/17 05:45 [place] # (Auto) 0.2 (0.1-0.6) 11/05/17 05:45 Eos # (Auto) 0.1 (0.0-0.7) 11/05/17 05:45 Baso # (Auto) 0.01 K/mm3 (0.0-2.0) 11/05/17 05:45 PT 13.4 SECONDS (9.4-12.5) H 11/02/17 12:07 INR 1.16 (0.93-1.08) H 11/02/17 12:07 APTT 28.0 Seconds (25.1-36.5) 11/02/17 12:07 D-Dimer, Quantitative 348 ng/mL (0-243) H 11/02/17 12:15 Sodium 138 mmol/L (132-148) 11/05/17 05:45 Potassium 3.6 mmol/L (3.6-5.0) 11/05/17 05:45 Chloride 109 mmol/L (98-107) H 11/05/17 05:45 Carbon Dioxide 23 mmol/L (21-33) 11/05/17 05:45 Anion Gap 10 (10-20) 11/05/17 05:45 BUN 13 mg/dL (7-21) 11/05/17 05:45 Creatinine 0.8 mg/dl (0.7-1.2) 11/05/17 05:45 Est GFR ( Amer) > 60 11/05/17 05:45 Est GFR (Non-Af Amer) > 60 11/05/17 05:45 Random Glucose 85 mg/dL (70-110) 11/05/17 05:45 Hemoglobin A1c 6.0 % (4.2-6.5) 11/02/17 17:35 Calcium 8.2 mg/dL (8.4-10.5) L 11/05/17 05:45 Total Bilirubin 0.6 mg/dL (0.2-1.3) 11/05/17 05:45 AST 22 U/L (14-36) 11/05/17 05:45 ALT 28 U/L (7-56) 11/05/17 05:45 Alkaline Phosphatase 46 U/L (38-126) 11/05/17 05:45 Lactate Dehydrogenase 422 U/L (333-699) 11/02/17 12:07 Total Creatine Kinase 75 U/L (35-230) 11/02/17 12:07 Troponin I 0.10 ng/mL 11/03/17 00:15 NT-Pro-B Natriuret Pep 2180 pg/mL (0-450) H 11/02/17 12:07 Total Protein 5.9 g/dL (5.8-8.3) 11/05/17 05:45 Albumin 3.0 g/dL (3.0-4.8) 11/05/17 05:45 Globulin 2.9 gm/dL 11/05/17 05:45 Albumin/Globulin Ratio 1.0 (1.1-1.8) L 11/05/17 05:45 Triglycerides 91 mg/dL (35-160) 11/02/17 17:35 Cholesterol 174 mg/dL (130-200) 11/02/17 17:35 LDL Cholesterol Direct 113 mg/dL (0-129) 11/02/17 17:35 HDL Cholesterol 30 mg/dL (29-60) 11/02/17 17:35 TSH 3rd Generation 2.10 mIU/mL (0.46-4.68) 11/02/17 17:35 Urine Color Light brown (YELLOW) 11/02/17 11:44 Urine Appearance Sl cloudy (CLEAR) 11/02/17 11:44 Urine pH 6.5 (4.7-8.0) 11/02/17 11:44 Ur Specific [place] 1.025 (1.005-1.035) 11/02/17 11:44 Urine Protein 100 mg/dL (<30 mg/dL) H 11/02/17 11:44 Urine Glucose (UA) Negative mg/dL (NEGATIVE) 11/02/17 11:44 Urine Ketones Trace mg/dL (NEGATIVE) H 11/02/17 11:44 Urine Blood Trace-intact (NEGATIVE) H 11/02/17 11:44 Urine Nitrate Negative (NEGATIVE) 11/02/17 11:44 Urine Bilirubin Moderate (NEGATIVE) H 11/02/17 11:44 Urine Urobilinogen 1.0 E.U./dL (<1 E.U./dL) H 11/02/17 11:44 Ur Leukocyte Esterase Trace Charli/uL (NEGATIVE) H 11/02/17 11:44 Urine RBC 0 - 2 /hpf (0-2) 11/02/17 11:44 Urine WBC 2 - 5 /hpf (0-6) 11/02/17 11:44 Ur Epithelial Cells 3 - 4 /hpf (0-5) 11/02/17 11:44 Urine Bacteria Few (NEG) 11/02/17 11:44 Urine HCG, Qual Negative (NEGATIVE) 11/03/17 15:40 Urine Opiates Screen Negative (NEGATIVE) 11/02/17 17:35 Urine Methadone Screen Negative (NEGATIVE) 11/02/17 17:35 Ur Barbiturates Screen Negative (NEGATIVE) 11/02/17 17:35 Ur Phencyclidine Scrn Negative (NEGATIVE) 11/02/17 17:35 Ur Amphetamines Screen Negative (NEGATIVE) 11/02/17 17:35 U Benzodiazepines Scrn Negative (NEGATIVE) 11/02/17 17:35 U Oth Cocaine Metabols Negative (NEGATIVE) 11/02/17 17:35 U Cannabinoids Screen Negative (NEGATIVE) 11/02/17 17:35 Influenza Typ A,B (EIA) Negative for flu a/b (NEGATIVE) 11/02/17 17:35 Attending/Attestation - Attestation I have personally seen and examined this patient.: Yes I have fully participated in the care of the patient.: Yes I have reviewed all pertinent clinical information, including history, physical exam and plan: Yes Notes (Text): 11/05/17 15:59 42 year old female with no significant past medical history who presented with complaint of cough, chest pain and shortness of breath. She was found to have elevated probnp, d-dimer and indeterminant troponins. CT angio and CXR were negative. She was started on aspirin, plavix, lovenox, statin and metoprolol. She was seen and evaluated by cardiology and underwent cardiac cath today which showed normal coronaries. Overall her symptoms have improved. She is discharged home to follow up with her pmd or [facility]. Counselled of lifestyle modifications including baby aspirin and low fat, low cholesterol diet. Metoprolol was discontinued due to low normal blood pressure. Cassandra Catalan MD Hospitalist.
[2017-11-05 16:19] VITALS: BP 113/61; PULSE 64; RESP 17; TEMP 98.3
--- NOTE | 2017-11-05 17:14 | CARD ---
APPROVED REPORT EXAM: Two-dimensional and M-mode echocardiogram with Doppler and color Doppler. INDICATION R/O CHF 2D DIMENSIONS Left Atrium (2D)3.9 (1.6-4.0cm)IVSd1.1 (0.7-1.1cm) LVDd4.1 (3.9-5.9cm)PWd1.1 (0.7-1.1cm) LVDs2.8 (2.5-4.0cm)FS (%) 31.8 % LVEF (%)60.3 (>50%) M-Mode DIMENSIONS Aortic Root3.70 (2.2-3.7cm)Aortic Cusp Exc.2.30 (1.5-2.0cm) Aortic Valve AoV Peak Sxopethg364.0cm/Katey Peak GR.6mmHg Mitral Valve MV E Babcshek76.4cm/sMV A Lhbxqrae68.6cm/sE/A ratio1.3 TDI Lateral E' Peak V11.20cm/sMedial E' Peak V7.70cm/sE/Lateral E'7.5 E/Medial E'11.0 Pulmonary Valve PV Peak Htkkjpts56.4cm/sPV Peak Grad.3mmHg Tricuspid Valve TR Peak [id number]/sRAP [id number] Peak Gr.22mmHg [id number] LEFT VENTRICLE The left ventricle is normal size. There is borderline concentric left ventricular hypertrophy. The left ventricular function is normal.EF-60-65% There is normal LV segmental wall motion. The left ventricular diastolic function is normal. No left ventricle thrombus noted on this study. There is no ventricular septal defect visualized. There is no left ventricular aneurysm. There is no mass noted in the left ventricle. RIGHT VENTRICLE The right ventricle is normal size. There is normal right ventricular wall thickness. The right ventricular systolic function is normal. ATRIA The left atrium size is normal. The right atrium size is normal. The interatrial septum is intact with no evidence for an atrial septal defect. AORTIC VALVE The aortic valve is normal in structure. No aortic regurgitation is present. There is no aortic valvular stenosis. There is no aortic valvular vegetation. MITRAL VALVE The mitral valve is thickened but opens well. Mitral regurgitation is trace. There is no mitral valve stenosis. There is no evidence of mitral valve prolapse. TRICUSPID VALVE The tricuspid valve leaflets are thickened , but open well. There is trace to mild tricuspid regurgitation.RVSP-32 mmof hg. There is no tricuspid valve stenosis. There is no tricuspid valve prolapse or vegetation. PULMONIC VALVE The pulmonary valve is normal in structure. There is no pulmonic valvular regurgitation. There is no pulmonic valvular stenosis. GREAT VESSELS The aortic root is normal in size. The ascending aorta is normal in size. The pulmonary artery is normal. The IVC is normal in size and collapses >50% with inspiration. PERICARDIAL EFFUSION There is no pleural effusion. There is a trace pericardial effusion. <Conclusion> Normal chamber Size. EF-60-65% Trace MR Trace to mild TR, RVSP-32 mmof hg. no vegetation or thrombus noted.
== END 2017-11-05 18:25 | disposition home or self-care (01) | DRG 124 ==
LOC: ED 09:51 → ERH 17:31 → 2RSO 11-03 01:53 → OBSVTOIN 11-03 14:48
PROVIDERS: ADMIT Internal Medicine; ATTEND Internal Medicine
PROC: 4A023N7 Measurement of Cardiac Sampling and Pressure, Left Heart, Percutaneous Approach (ICD-10-PCS; principal; 2017-11-05)
PROC: B211YZZ Fluoroscopy of Multiple Coronary Arteries using Other Contrast (ICD-10-PCS; 2017-11-05)
PROC: B215YZZ Fluoroscopy of Left Heart using Other Contrast (ICD-10-PCS; 2017-11-05)
DX: R07.89 Other chest pain (principal); I50.9 Heart failure, unspecified; I95.9 Hypotension, unspecified; Z68.41 Body mass index [BMI] 40.0-44.9, adult; E66.9 Obesity, unspecified; R79.1 Abnormal coagulation profile; Z80.3 Family history of malignant neoplasm of breast; Z82.49 Family history of ischemic heart disease and other diseases of the circulatory system